=== PATIENT | male | born 1945 | race Caucasian/White ===

== ENCOUNTER 2016-05-30 05:30 | Day surgery (SDC) ==
[2016-05-29 09:33] LABS: HEMATOCRIT 35.6 % (42.0-52.0); HEMOGLOBIN 10.7 g/dL (14.0-18.0); MCH 22.3 PG (27-31); MCHC 30.1 g/dL (33-37); MCV 74.2 FL (81-99); MPV 10.1 FL (7.4-10.4); RBC 4.8 XMIL (4.7-6.1)
[2016-05-29 09:37] LABS: INR 1.02; PROTIME 10.8 Seconds (9.2-11.7); PTT 26.8 Seconds (22.0-36.0)
[2016-05-29 09:49] LABS: CALCIUM 9.3 mg/dL (8.8-10.2); POTASSIUM 4.3 mmol/L (3.5-5.1)
[2016-05-30] MEDS ORDERED: KEFZOL 2 GM/D5W 50 ML ONE (06:10)
[2016-05-30] MEDS ORDERED: REGLAN ONE (06:10)
[2016-05-30] MEDS ORDERED: LR 1,000 ML ONE ×2 (06:10→12:07)
[2016-05-30] MEDS ORDERED: PEPCID ONE (06:10)
[2016-05-30] MEDS ORDERED: DIPRIVAN 1% ONE (09:16)
[2016-05-30] MEDS ORDERED: PERCOCET-5 ONE (10:25)
[2016-05-30] MEDS ORDERED: PYRIDIUM ONE ×2 (10:25→10:29)
--- NOTE | 2016-05-30 10:46 | Diag Imaging Result Document ---
PROCEDURE NAME: RETROGRADES 2 OR 3 FILMS - 05/30/2016 LEFT-SIDED URETEROGRAM: COMPARISON: 04/17/2015. FINDINGS: The exam was performed by the patient's urologist. Thirty-one images were obtained. There was placement of a wire and stent in the left renal collecting system. Contrast injection demonstrates hydronephrosis with clubbing of the calyces. A left nephroureteral stent was placed in normal position. IMPRESSION: Left hydronephrosis. Left stent placement.
[2016-05-30 11:05] VITALS: BP 139/76
[2016-05-30] MEDS ORDERED: XYLOCAINE-MPF 2% ONE (12:07)
[2016-05-30] MEDS ORDERED: ATROPINE ONE (12:07)
[2016-05-30] MEDS ORDERED: EPHEDRINE ONE (12:07)
[2016-05-30] MEDS ORDERED: ZOFRAN ONE (12:07)
[2016-05-30] MEDS ORDERED: DECADRON ONE (12:07)
--- NOTE | 2016-05-30 14:25 | OPERATIVE NOTE ---
PROCEDURE DATE: 05/30/2016 SURGEON: Dr. Celio Feldman. PREOPERATIVE DIAGNOSIS: Left ureteral stone, hydronephrosis, flank pain, chronic anticoagulation. PRIMARY PROCEDURES: Cystoscopy, left ureteroscopy, retrograde pyelogram, laser lithotripsy, stone basket extraction, placement of 6-Mauritian-24 cm ureteral stent. INDICATIONS: A 70-year-old male with recurrent urolithiasis who presented with significant left flank pain. He underwent imaging which revealed 6 mm left proximal ureteral stone with mild hydronephrosis. He was counseled on medical expulsive therapy versus intervention. Chose to proceed with the latter. He was counseled on the risks. FINDINGS: The stone was advanced into the kidney with a safety wire. Rigid ureteroscopy was converted to a flexible ureteroscopy which allowed us to visualize the stone. Successful fragment extraction after laser lithotripsy, adequate stent placement. PROCEDURE IN DETAIL: After obtaining informed consent, patient brought to the operative room. Perioperative antibiotics and laryngeal mask anesthesia were administered. He was placed in lithotomy position, prepped and draped in sterile fashion. His upper and lower extremities were appropriately padded. A 21-Mauritian rigid cystoscope was used to gain access to the bladder, which was then examined in systematic fashion. He did have prostatic bilobar hypertrophy. I was able to see the left ureteral orifice which was cannulated with a PTFE wire that was then advanced to the left renal pelvis. Following that, a rigid ureteroscope was introduced alongside of the wire and advanced all the way to the level of the ureteropelvic junction. There was hydroureteronephrosis from the level of the mid ureter but no stone was seen. On fluoroscopy I could see a faint 6 mm calcification of the lower pole which likely corresponded to the stone. We then removed the rigid ureteroscope and introduced a 2nd PTFE wire. We then backloaded flexible cystoscope onto the wire and advanced it under fluoroscopic guidance to the level of the ureteropelvic junction. Under direct vision then the ureteroscope was introduced. Fifty percent diluted Omnipaque dye was used to perform retrograde pyelogram in order to identify the caliceal anatomy. Following that, we examined each calyx carefully. The stone was seen in the lower pole calyx where I presumably pushed it up with a wire. He also had a smaller 2 mm stone at the calyx adjacent to it. I used 273 micron Holmium laser fiber, with energy settings of 0.8 joules and 8 peralta to break the stone up into small fragments. The 2 mm stone was broken up to its small minute particles. The 0 Nitinol basket was then used to retrieve the stone fragments. Following that we repeated a ureteroscopy without evidence of residual fragments or ureteral or renal injury. We then elected to place ureteral stent given the significant mucosal edema. In a standard fashion a 6-Mauritian 24 cm ureteral stent was advanced over the wire via the cystoscope with the proximal coil position confirmed fluoroscopically and distal coil directly visualized. The string was left attached to the stent. The bladder was emptied, cystoscope was removed, he was extubated and taken to the PACU for further recovery. ESTIMATED BLOOD LOSS: None. COMPLICATIONS: None. DISPOSITION: To PACU and subsequently home with prescription for Percocet 10 (20), Cipro 500 (14). He was instructed to remove the stent by pulling the string in 4 days. We did not send the stent off for analysis as he has had it analyzed before.
== END 2016-05-30 11:00 | disposition home or self-care (01) ==
LOC: OPS 05:30
PROVIDERS: ATTEND Urology
DX: N13.2 Hydronephrosis with renal and ureteral calculous obstruction (principal); K21.9 Gastro-esophageal reflux disease without esophagitis; E11.9 Type 2 diabetes mellitus without complications; F32.9 Major depressive disorder, single episode, unspecified; I25.2 Old myocardial infarction; E78.00 Pure hypercholesterolemia, unspecified; I10 Essential (primary) hypertension; E03.9 Hypothyroidism, unspecified; Z95.5 Presence of coronary angioplasty implant and graft; Z79.01 Long term (current) use of anticoagulants; Z79.4 Long term (current) use of insulin; Z87.891 Personal history of nicotine dependence
CPT/HCPCS: 74420; 80048; 82948; 85027; 85610; 85730; C2617; J0461; J0690; J1100; J2405; J7120; Q9966

== ENCOUNTER 2016-08-12 14:01 | Emergency (ER) ==
--- NOTE | 2016-08-12 15:06 | PROVIDER DOCUMENTATION ---
HPI-Respiratory General - General Chief Complaint: Shortness of Breath Stated Complaint: sob Time Seen by Provider: 08/12/16 14:25 Source: patient Allergies/Adverse Reactions: Patient Allergies Allergy/AdvReac Type Severity Reaction Status Date / Time No Known Allergies Allergy Verified 05/29/16 08:58 Home Medications: Home Medication List Medication Instructions Recorded Confirmed Last Taken Type ATORVAstatin [Lipitor] 40 mg PO QPM 04/15/14 05/30/16 05/29/16 20:00 History Carvedilol [Coreg] 12.5 mg PO BID 04/12/15 05/30/16 05/30/16 04:30 History Omeprazole [Prilosec] 40 mg PO DAILY@0700 #0 capsule 04/18/15 05/30/16 05/29/16 07:00 Rx Spironolactone [Aldactone] 12.5 mg PO DAILY #0 tablet 04/18/15 05/30/16 04:30 Rx Amiodarone [Cordarone] 400 mg PO DAILY 05/29/16 05/30/16 05/30/16 04:30 History Apixaban [Eliquis] 2.5 mg PO BID 05/29/16 05/30/16 05/28/16 08:00 History Aspirin 81 mg PO DAILY 05/29/16 05/30/16 05/30/16 04:30 History Furosemide 40 mg PO DAILY 05/29/16 05/30/16 05/30/16 04:30 History Hydralazine [Apresoline] 50 mg PO BID 05/29/16 05/30/16 05/30/16 04:30 History Insulin Aspart [Novolog] 10 unit SQ QHS 05/29/16 05/30/16 05/29/16 20:00 History Insulin Aspart [Novolog] 40 unit SQ QAM 05/29/16 05/30/16 05/29/16 07:00 History Insulin Detemir [Levemir] 60 unit SUBQ BID 05/29/16 05/30/16 05/29/16 20:00 History Ciprofloxacin HCl [Cipro] 500 mg PO BID #14 tablet 05/30/16 Unknown Rx Oxycodone HCl/Acetaminophen 1 each PO Q6H PRN PRN #20 tablet 05/30/16 Unknown Rx [Percocet 10-325 mg Tablet] - History of Present Illness-Resp Nature of Presenting Problem: patient is a 70 y/o M that presents to the ER with shortness of breath, cough, and edema x 1 month. patient denies fever, n/v/d, or chest pain. was placed on medication Quality of Pain: reports: tightness Severity in ED: reports: moderate Onset/Duration: reports: gradual, other (one month) Timing: reports: still present, constant Context: denies: out of meds, aspiration/choking Cough Quality/Degree: reports: mild, dry cough Current Respiratory Medication Therapy: Initiated see nurses note Modifying Factors: worse with: coughing Associated Symptoms: reports: cough, shortness of breath, short of breath. denies: facial pain, fever/chills, flu-like symptoms, nasal congestion, nasal drainage, sore throat, wheezing Similar Symptoms Previously?: Yes Recently seen or treated by another doctor?: Yes Review of Systems - Adult - REVIEW OF SYSTEMS - ADULT Constitutional: denies: chills, fever Eyes: reports: no symptoms reported Ears, Nose, Mouth & Throat: reports: no symptoms reported Cardiovascular: reports: edema. denies: chest pain, palpitations, syncope Respiratory: reports: cough, shortness of breath Gastrointestinal: denies: abdominal pain, diarrhea, nausea, vomiting Genitourinary: reports: no symptoms reported Musculoskeletal: reports: no symptoms reported Integumentary: reports: no symptoms reported Neurological: reports: no symptoms reported Psychiatric: reports: no symptoms reported Endocrine: reports: no symptoms reported Hematologic/Lymphatic: reports: no symptoms reported Allergic/Immunologic: reports: no symptoms reported All Other Systems: Reviewed and Negative Past History - Adult - PAST MEDICAL HISTORY-ADULT Review of Records: reports: Old Records Reviewed, Nursing Assessment Review, Medications Reviewed Cardiovascular: reports: HTN, NM Genitourinary: reports: kidney stones (had surgey last fri) - PRIOR SURGERIES/PROCEDURES Surgical/Procedure History: reports: CABG, other (cystoscopy. nephrolithotomy) - IMMUNIZATION STATUS Childhood Immunizations: See Nurse Assessment Flu Vaccine: See Nurse Assessment - FAMILY HISTORY Family History: reviewed, not pertinent - SOCIAL HISTORY Smoking: quit greater than 1 year, cigarettes Alcohol Use Frequency: occasionally Living Situation: family Physical Exam-General - PHYSICAL EXAM-ADULT Initial Vital Signs Reviewed: Yes - CONSTITUTIONAL General Appearance: alert, no apparent distress - EYES Eyes: PERRL/EOMI, pink conjunctivae - HEAD, EARS, NOSE, MOUTH & THROAT HENMT: normocephalic/atraumatic, moist mucous membranes, normal ENT inspection - NECK Neck: full range of motion, normal inspection - RESPIRATORY Respiratory: lungs clear, normal breath sounds, no respiratory distress, no accessory muscle use - CARDIOVASCULAR Cardiovascular: regular rate, rhythm, no edema, no murmur - GASTROINTESTINAL (ABDOMEN) Abdominal Exam: normal bowel sounds, non tender, soft - MUSCULOSKELETAL Extremity: no calf tenderness, normal capillary refill, pedal edema (1 plus) - SKIN Integumentary: normal color, warm/dry - NEUROLOGIC Neurologic: grossly normal, no motor/sensory deficits - PSYCHIATRIC Psych/Mental Status: normal mood/affect, normal thought content, normal thought process, oriented x 3 Progress - PLAN OF CARE/RESULTS Progress/Plan/Lab Results: Vital Signs Temp Pulse Resp BP Pulse Ox 08/12/16 14:18 97.7 F 60 20 119/60 97 No Known Allergies Allergy (Verified 05/29/16 08:58) ATORVAstatin [Lipitor] 40 mg PO QPM 04/15/14 Carvedilol [Coreg] 12.5 mg PO BID 04/12/15 Omeprazole [Prilosec] 40 mg PO DAILY@0700 #0 capsule 04/18/15 Spironolactone [Aldactone] 12.5 mg PO DAILY #0 tablet 04/18/15 Amiodarone [Cordarone] 400 mg PO DAILY 05/29/16 Apixaban [Eliquis] 2.5 mg PO BID 05/29/16 Aspirin 81 mg PO DAILY 05/29/16 Furosemide 40 mg PO DAILY 05/29/16 Hydralazine [Apresoline] 50 mg PO BID 05/29/16 Insulin Aspart [Novolog] 10 unit SQ QHS 05/29/16 Insulin Aspart [Novolog] 40 unit SQ QAM 05/29/16 Insulin Detemir [Levemir] 60 unit SUBQ BID 05/29/16 Ciprofloxacin HCl [Cipro] 500 mg PO BID #14 tablet 05/30/16 Oxycodone HCl/Acetaminophen [Percocet 10-325 mg Tablet] 1 each PO Q6H PRN PRN # 20 tablet 05/30/16 Laboratory 08/12/16 08/12/16 08/12/16 14:29 14:29 14:29 WBC RBC Hgb Hct MCV MCH MCHC RDW Std Deviation Plt Count MPV Immature Gran % (Auto) Neut % (Auto) Lymph % (Auto) [place] % (Auto) Eos % (Auto) Baso % (Auto) Immature Gran # (Auto) Neut # (Auto) Lymph # (Auto) [place] # (Auto) Eos # (Auto) Baso # (Auto) PT 11.2 INR 1.09 PTT (Actin FS) 29.5 D-Dimer Sodium Potassium Chloride Carbon Dioxide Anion Gap BUN Creatinine Estimated GFR/1.73 m2 BUN/Creatinine Ratio Glucose Calculated Osmolality Calcium Magnesium Total Bilirubin AST ALT Alkaline Phosphatase Creatine Kinase Troponin T 0.054 Jvy-N-Taqxxsusibl Pept 409 H Total Protein Albumin Globulin Albumin/Globulin Ratio 08/12/16 08/12/16 08/12/16 14:29 14:29 14:29 WBC 8.30 RBC 4.70 Hgb 10.6 L Hct 35.0 L MCV 74.5 L MCH 22.6 L MCHC 30.3 L RDW Std Deviation 19.1 H Plt Count 290 MPV 11.0 H Immature Gran % (Auto) 0.0 Neut % (Auto) 66.0 Lymph % (Auto) 19.8 L [place] % (Auto) 10.4 H Eos % (Auto) 3.6 Baso % (Auto) 0.2 Immature Gran # (Auto) 0.00 Neut # (Auto) 5.48 Lymph # (Auto) 1.64 [place] # (Auto) 0.86 H Eos # (Auto) 0.30 Baso # (Auto) 0.02 PT INR PTT (Actin FS) D-Dimer 0.54 H Sodium 139 Potassium 4.4 Chloride 101 Carbon Dioxide 22 L Anion Gap 16 BUN 26 H Creatinine 1.7 H Estimated GFR/1.73 m2 40 BUN/Creatinine Ratio 15 Glucose 72 Calculated Osmolality 281 Calcium 9.3 Magnesium 1.8 Total Bilirubin 0.34 AST 21 ALT 22 Alkaline Phosphatase 60 Creatine Kinase 116 Troponin T Vof-N-Zipyzevdqax Pept Total Protein 7.1 Albumin 3.8 Globulin 3.3 Albumin/Globulin Ratio 1.2 Orders Category Date Time Status Cardiac Monitoring DIRECTED Care 08/12/16 14:23 Active Saline Loc NOW Care 08/12/16 14:23 Active CHEST-2 VIEWS [RAD] Stat Exams 03/20/17 14:23 Completed CBC WITH ELECTRONIC DIFF [HEME] Stat Lab 08/12/16 14:29 Completed CK PROFILE [SP CHEM] Stat Lab 08/12/16 14:29 Completed COMPREHENSIVE METABOLIC PANEL [CHEM] Stat Lab 08/12/16 14:29 Completed D-DIMER [CHEM] Stat Lab 08/12/16 14:29 Completed MAGNESIUM [CHEM] Stat Lab 08/12/16 14:29 Completed PRO B-NATRIURETIC PEPTIDE Stat Lab 08/12/16 14:29 Completed PROTIME WITH INR [COAG] Stat Lab 08/12/16 14:29 Completed PTT [COAG] Stat Lab 08/12/16 14:29 Completed TROPONIN T Stat Lab 08/12/16 14:29 Completed EKG [EKG] Stat Ther 08/12/16 14:23 Ordered - EKG 1 Time of EKG reading by physician:: 14:16 EKG Read and Signed by:: Campbell Bo EKG Interpretation (*Must complete 3 of following elements*): Abnormal Rate: 58 Rhythm: sinus bradycardia QRS: normal ST Wave: non-specific ST changes - XRAY 1 XRAY Study: Chest Impression: Normal XRAY Interpretation: nad - CONSULTS/PCP/HOSPITALIST Notification #1 *Consult/PCP/Hospitalist*: ( election clerk for ) Time Discussed: 17:06 Reason/Comments: admit obsv, VQ scan in the am Consult Disposition: Admit Departure - Departure Time of Disposition Order: 17:06 DIAGNOSIS: Elevated d-dimer, Renal insufficiency Dyspnea Qualifiers: Dyspnea type: shortness of breath Qualified Code(s): R06.02 - Shortness of breath Disposition: ADMITTED INPATIENT 09 Certified Medical Emergency: Emergent Condition: Stable Attestation - Scribe Verification/Attestation Scribe:: Clyde Pittman Acting as Scribe for:: Campbell Bo Scribchanda documention review:: This chart was documented by a scribe and accurately reflects the service the provider performed and the decisions made by the provider. Physician Attestation - Physician Attestation I, the provider, attest to the following statement:: Campbell Bo Physician documentation Attestation:: This documentation recorded by the scribe accurately reflects the service I personally performed and the decisions made by me.
[2016-08-12 15:21] LABS: INR 1.09; PROTIME 11.2 Seconds (9.2-11.7); PTT 29.5 Seconds (22.0-36.0)
--- NOTE | 2016-08-12 15:24 | Diag Imaging Result Document ---
PROCEDURE NAME: CHEST-2 VIEWS - 08/12/2016 CHEST, 2 VIEWS: FINDINGS: There are sternotomy wires. There is no evidence of acute cardiac or pulmonary disease and compared to 04/18/2015, there has been no significant change. IMPRESSION: No acute disease.
[2016-08-12 15:29] LABS: BASO% 0.2 % (0.0-0.8); EOS% 3.6 % (0.0-10.0); HEMOGLOBIN 10.6 g/dL (14.0-18.0); LYMPH# 1.64 X1000 (1.2-3.4); LYMPH% 19.8 % (20.5-51.1); MANUAL DIFF NEEDED? NO; MCH 22.6 PG (27-31); MCHC 30.3 g/dL (33-37); MCV 74.5 FL (81-99); MONO# 0.86 X1000 (0.11-0.59); MONO% 10.4 % (1.7-9.3); PLT 290 X1000 (130-400)
[2016-08-12 15:39] LABS: ALBUMIN 3.8 g/dL (3.5-5.0); CALCIUM 9.3 mg/dL (8.8-10.2); MAGNESIUM 1.8 mg/dL (1.5-2.7); POTASSIUM 4.4 mmol/L (3.5-5.1); TOTAL BILIRUBIN 0.34 mg/dL (0.20-1.00); TOTAL PROTEIN 7.1 g/dL (6.3-8.3)
[2016-08-12 18:14] VITALS: BP 140/85
--- NOTE | 2016-08-13 05:22 | EKG Report ---
Test Performed on : 08/12/2016 2:16:27 PM Test Reason : Chest Pain Blood Pressure : / mmHG Vent. Rate : 058 BPM Atrial Rate : 058 BPM P-R Int : 206 ms QRS Dur : 086 ms QT Int : 454 ms P-R-T Axes : 053 008 092 degrees QTc Int : 445 ms Sinus bradycardia. 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
== END 2016-08-12 18:14 | disposition home or self-care (01) ==
LOC: ED 14:01
DX: R06.00 Dyspnea, unspecified (principal); N28.9 Disorder of kidney and ureter, unspecified; R79.1 Abnormal coagulation profile; R05 Cough; R06.02 Shortness of breath; R60.0 Localized edema; I10 Essential (primary) hypertension; I25.2 Old myocardial infarction; Z79.01 Long term (current) use of anticoagulants; Z79.82 Long term (current) use of aspirin; Z79.4 Long term (current) use of insulin; Z79.899 Other long term (current) drug therapy; Z87.442 Personal history of urinary calculi; Z95.1 Presence of aortocoronary bypass graft; Z87.891 Personal history of nicotine dependence
CPT/HCPCS: 71020; 80053; 82550; 83735; 83880; 84484; 85025; 85379; 85610; 85730; 93005

== ENCOUNTER 2018-08-25 13:00 | Inpatient (IN) ==
[2018-08-25] MEDS ORDERED: BENTYL IM ONE (13:51)
--- NOTE | 2018-08-25 14:29 | Diag Imaging Result Doc PS360 ---
CT ABDOMEN/PELVIS W/O CONTRAST - 08/25/2018 INDICATION: diarrhea, pain COMPARISON: 01/05/2018 FINDINGS: The lung bases are clear. Heart size is top normal. Stable sternotomy changes. There is an ill-defined hypoechoic nodule in the superior liver dome. This measures about 3.1 cm maximally. There is abnormal contour of the liver adjacent to this. In the inferior right lobe adjacent to the gallbladder fossa there is a smaller masslike area there is stable. This is irregular. This measures about 2.8 cm. There are several small calcified gallstones in the gallbladder. The liver is much less fatty than before. There is a small nonobstructing right renal stone measuring about 3 mm. There is severe diverticulosis of the distal colon. No bowel obstruction or inflammation. Stable laminectomy and fusion changes of the lower lumbar spine. There is severe degenerative osteophyte formation all throughout the entire spine. No obvious fracture. IMPRESSION: 1. Indeterminate mass in the liver dome. The overlying deformity of the capsule suggests this is chronic. Malignancy cannot be excluded. Clinical correlation recommended. There is a second stable appearing smaller mass in the inferior liver adjacent to the gallbladder fossa. 2. Nonobstructing right renal stone. 3. Small gallstones. 4. Severe diverticulosis coli. This exam was performed using automated exposure control, adjustment of mA or kV according to patient size, and/or use of iterative reconstruction technique Electronically signed by Zach Shine 08/25/2018 2:27 PM
[2018-08-25 14:37] LABS: BASO# 0.02 X1000 (0.0-0.2); BASO% 0.2 % (0.0-0.8); EOS# 0.35 X1000 (0.0-0.7); EOS% 3.2 % (0.0-10.0); HEMATOCRIT 42.1 % (42.0-52.0); HEMOGLOBIN 13.5 g/dL (14.0-18.0); LYMPH# 1.13 X1000 (1.2-3.4); LYMPH% 10.3 % (20.5-51.1); MCH 28.1 PG (27-31); MCHC 32.1 g/dL (33-37); MCV 87.5 FL (81-99); MONO# 1.03 X1000 (0.11-0.59); MONO% 9.4 % (1.7-9.3); NEUT# 8.48 X1000 (1.4-6.5); NEUT% 76.9 % (42.2-75.2); PLT 190 X1000 (130-400); RBC 4.81 XMIL (4.7-6.1); RDW 16.4 % (11.5-14.5); WBC 11.01 X1000 (4.8-10.8)
[2018-08-25 15:11] LABS: ALB/GLOB RATIO 1.2; ALBUMIN 3.6 g/dL (3.5-5.0); CALCIUM 8.7 mg/dL (8.8-10.2); CREATININE 3.6 mg/dL (0.7-1.2); POTASSIUM 4.6 mmol/L (3.5-5.1); TOTAL BILIRUBIN 0.58 mg/dL (0.20-1.00); TOTAL PROTEIN 6.7 g/dL (6.3-8.3)
[2018-08-25] MEDS ORDERED: NS 1,000 ML IV ONE ×2 (16:39→16:57)
--- NOTE | 2018-08-25 17:02 | PROVIDER DOCUMENTATION ---
This chart was entered by Trini Foster Scribe, acting as scribe for Luisito Madrid MD. HPI-General Adult - General Chief Complaint: Diarrhea Stated Complaint: Weakness, Diahrrea Time Seen by Provider: 08/25/18 13:45 Source: patient Allergies/Adverse Reactions: Patient Allergies Allergy/AdvReac Type Severity Reaction Status Date / Time amiodarone AdvReac Intermediate Unknown Verified 06/14/18 04:53 Home Medications: Home Medication List Medication Instructions Recorded Confirmed Last Taken Type Carvedilol [Coreg] 12.5 mg PO BID 04/12/15 08/25/18 06/12/18 08:00 History Aspirin 81 mg PO DAILY 05/29/16 08/25/18 06/12/18 08:00 History Atorvastatin Calcium [Lipitor] 40 mg PO QHS 02/17/17 08/25/18 06/12/18 21:00 History Isosorbide Mononitrate [Isosorbide 30 mg PO HS 02/17/17 08/25/18 06/12/18 21:00 History Mononitrate ER] Torsemide [Demadex] 20 mg PO DAILY 07/31/17 08/25/18 06/12/18 08:00 History Losartan [Cozaar] 25 mg PO DAILY 09/21/17 08/25/18 06/12/18 08:00 History Allopurinol [Zyloprim] 100 mg PO DAILY 04/15/18 08/25/18 06/12/18 08:00 History Apixaban [Eliquis] 5 mg PO BID 04/15/18 08/25/18 06/12/18 08:00 History Insulin Detemir [Levemir Flextouch] 80 unit SQ BID 04/15/18 08/25/18 04/15/18 18:00 History Acetaminophen [Tylenol] 650 mg PO Q6H PRN PRN tablet 04/23/18 08/25/18 Unknown Rx Magnesium Oxide 400 mg PO DAILY #0 04/23/18 08/25/18 06/12/18 08:00 Rx Tamsulosin [Flomax] 0.4 mg PO DAILY capsule 04/23/18 08/25/18 06/14/18 08:00 Rx Citalopram [Celexa] 20 mg PO DAILY 01/08/25/18 06/12/18 08:00 History Gabapentin 300 mg PO BID 06/14/18 08/25/18 06/14/18 08:00 History Hydralazine [Apresoline] 50 mg PO BID 06/14/18 08/25/18 06/12/18 08:00 History Insulin Aspart [Novolog Flexpen] 60 units SQ BID 06/14/18 08/25/18 Unknown History Famotidine 20 mg PO DAILY 06/15/18 08/25/18 Unknown History Insulin Lispro [Humalog] 100 unit SQ DIRECTED 06/23/18 08/25/18 Unknown History - History of Present Illness -Gen Adult Nature of Presenting Problems: Patient is a 72 year old male who presents to the ED via EMS with diarrhea for 3 days. States 5 to 10 episodes of diarrhea a day. Denies pain, nausea, vomiting, fever and chills. Denies recently taking an antibiotic. Location of Pain/Injury: reports: none Pain Radiation: reports: no radiation Quality of Pain: reports: none Severity: reports: mild Onset/Duration: reports: 3 days ago Timing: reports: still present Context/Activities at Onset: reports: light activity Modifying Factors: improves with: nothing Associated Symptoms: reports: diarrhea Similar Symptoms Previously?: Yes Recently seen or treated by another doctor?: No Review of Systems - Adult - REVIEW OF SYSTEMS - ADULT Constitutional: reports: no symptoms reported. denies: chills, fever, fatique Eyes: reports: no symptoms reported Ears, Nose, Mouth & Throat: reports: no symptoms reported Cardiovascular: reports: no symptoms reported Respiratory: reports: no symptoms reported Gastrointestinal: reports: see HPI, diarrhea. denies: abdominal pain, nausea, vomiting Genitourinary: reports: no symptoms reported Musculoskeletal: reports: no symptoms reported. denies: back pain, muscle aches, neck pain Integumentary: reports: no symptoms reported Neurological: reports: no symptoms reported Psychiatric: reports: no symptoms reported Endocrine: reports: no symptoms reported Hematologic/Lymphatic: reports: no symptoms reported Allergic/Immunologic: reports: no symptoms reported All Other Systems: Reviewed and Negative Past History - Adult - PAST MEDICAL HISTORY-ADULT Review of Records: reports: Nursing Assessment Review, Medications Reviewed, Social history reviewed & non-contributory. Major Childhood Illnesses: reports: denies history Cardiovascular: reports: A-Fib, CHF, HTN, hyperlipidemia, NM Respiratory: reports: sleep apnea Gastrointestinal: reports: GERD Obstetrical/Gynecological: reports: denies history Genitourinary: reports: kidney disease, kidney stones (had surgey last fri) Musculoskeletal: reports: denies history Neurological: reports: denies history Psychiatric: reports: ptsd Endocrine/Immune: reports: Diabetes Other Conditions: reports: denies history - PRIOR SURGERIES/PROCEDURES Surgical/Procedure History: reports: CABG, back/neck (back), other (cystoscopy. nephrolithotomy) - IMMUNIZATION STATUS Childhood Immunizations: See Nurse Assessment Flu Vaccine: See Nurse Assessment - FAMILY HISTORY Family History: reviewed, not pertinent - SOCIAL HISTORY Smoking: cigarettes (former) Substance Use: denies Physical Exam-General - PHYSICAL EXAM-ADULT Initial Vital Signs Reviewed: Yes - CONSTITUTIONAL General Appearance: alert, no apparent distress, obese. negative: lethargic, slow to respond - HEAD, EARS, NOSE, MOUTH & THROAT HENMT: moist mucous membranes. negative: angioedema, hearing deficit - RESPIRATORY Respiratory: chest non-tender, lungs clear, normal breath sounds. negative: crackles, rhonchi - CARDIOVASCULAR Cardiovascular: normal peripheral pulses, regular rate, rhythm. negative: tachycardia, systolic murmur - GASTROINTESTINAL (ABDOMEN) Abdominal Exam: normal bowel sounds, non tender, soft. negative: guarding, re bound - MUSCULOSKELETAL Extremity: non-tender, normal inspection. negative: deformity, swelling - SKIN Integumentary: normal color, normal turgor, warm/dry. negative: cyanosis, erythema, jaundice - NEUROLOGIC Neurologic: grossly normal - PSYCHIATRIC Psych/Mental Status: normal mood/affect, oriented x 3. negative: paranoid, tearful Progress - PLAN OF CARE/RESULTS Progress/Plan/Lab Results: Vital Signs - 8 hr 08/25/18 13:40 Pulse Rate 84 Respiratory Rate 21 Blood Pressure 107/61 O2 Sat by Pulse Oximetry 96 Orders Category Date Time Status CT ABDOMEN/PELVIS W/O CONTRAST [CT] Stat Exams 08/25/18 13:52 Ordered C DIFF TOXIN [STOOL] Stat Lab 08/25/18 13:50 Uncollected CBC WITH ELECTRONIC DIFF [HEME] Stat Lab 08/25/18 13:47 Uncollected COMPREHENSIVE METABOLIC PANEL [CHEM] Stat Lab 08/25/18 13:47 Uncollected UA [URINALYSIS] [URINALYSIS] Stat Lab 08/25/18 13:47 Uncollected Dicyclomine [Bentyl] Med 08/25/18 13:51 Discontinued 10 mg IM NOW ONE Result Diagrams: 08/25/18 14:28 08/25/18 14:28 - CT/MRI 1 CT Study: Abdomen, Pelvis Impression: See EMR Report ( CT ABDOMEN/PELVIS W/O CONTRAST - 08/25/2018 INDICATION: diarrhea, pain COMPARISON: 01/05/2018 FINDINGS: The lung bases are clear. Heart size is top normal. Stable sternotomy changes. There is an ill- defined hypoechoic nodule in the superior liver dome. This measures about 3.1 cm maximally. There is abnormal contour of the liver adjacent to this. In the inferior right lobe adjacent to the gallbladder fossa there is a smaller masslike area there is stable. This is irregular. This measures about 2.8 cm. There are several small calcified gallstones in the gallbladder. The liver is much less fatty than before. There is a small nonobstructing right renal stone measuring about 3 mm. There is severe diverticulosis of the distal colon. No bowel obstruction or inflammation. Stable laminectomy and fusion changes of the lower lumbar spine. There is severe degenerative osteophyte formation all throughout the entire spine. No obvious fracture. IMPRESSION: 1. Indeterminate mass in the liver dome. The overlying deformity of the capsule suggests this is chronic. Malignancy cannot be excluded. Clinical correlation recommended. There is a second stable appearing smaller mass in the inferior liver adjacent to the gallbladder fossa. 2. Nonobstructing right renal stone. 3. Small gallstones. 4. Severe diverticulosis coli. This exam was performed using automated exposure control, adjustment of mA or kV according to patient size, and/or use of iterative reconstruction technique Electronically signed by Zach Shine 08/25/2018 2:27 PM 08/25/18 7609 Interpreting Physician: Zach Shine MD Dictated Date/Time: 08/25/18 1423 cc: Luisito Madrid MD; Mariano Bowman MD) - CONSULTS/PCP/HOSPITALIST Notification #1 *Consult/PCP/Hospitalist*: Dr. Louis Time Discussed: 16:36 Reason/Comments: Dr. Madrid consulted with Dr. Louis about patient. Consult Disposition: F/U in office #2 Consult: ANA Coffman for Hospitalist Time Discussed: 16:50 Reason/Comments: Dr. Madrid consulted with Meghna about patient. Consult Disposition: other (patient is a Dr. Bowman patient.) #3 Consult: Dr. Woo Time Discussed: 16:54 Reason/Comments: Dr. Madrid consulted with Dr. Woo about patient. Consult Disposition: Admit Departure - Departure Date of Disposition Decision: 08/25/18 Time of Disposition Decision: 16:50 DIAGNOSIS: Diarrhea, Liver mass, Chronic renal insufficiency, stage IV (severe), Dehyd ration Disposition: ADMITTED INPATIENT 09 Certified Medical Emergency: Emergent Condition: Stable Referrals and Follow-Ups: Mariano Bowman MD [Primary Care Provider] - - Critical Care Note This patient required my direct & personal management of CC.: No Attestation - Physician/ LAMONT Attestation Patient care was provided by Advanced Practice Provider:: No The physician spent face to face time with patient:: Yes Advanced Practice Provider documentation review:: Supervising physician onsite and consulted in the evaluation and care of this patient. The physician did have a face to face encounter with the patient. This chart was documented by the indicated scribe, (Trini Foster, Jeffry) and accurately reflects the services I performed and decisions made by me, Luisito Madrid MD, as attested by the provider's signature.
[2018-08-25] MEDS ORDERED: POTASSIUM CHLORIDE 10 MEQ in 1/2 NS 1,000 ML IV SCH (19:00)
[2018-08-25] MEDS ORDERED: FLAGYL 500 MG/NS 500 MG/100 ML IVPB IV SCH (19:00)
--- NOTE | 2018-08-25 19:23 | HISTORY AND PHYSICAL ---
ADDENDUM: He had a CT scan done in the emergency room, which revealed an indeterminate mass in the liver dome. Malignancy could not be ruled out. He has a nonobstructing renal stone, cholelithiasis, and severe diverticulosis of the colon. We will get a GI consult with Dr. Louis. cc: Ramon Woo MD
--- NOTE | 2018-08-25 20:08 | HISTORY AND PHYSICAL ---
Mr. Mills who is a 72-year-old white gentleman, a patient of Dr. Bowman has been having diarrhea for about 2 days. He says he has almost lost control on his bowels. Six months ago he had a laser back surgery probably diskectomy by Dr. Crook. Prior to the back surgery he had some radicular pains in both legs with weakness however he did not have a sphincter disturbance at that time. He had full control on his bowels, he has problems with BPH and has been on tamsulosin and has history of multiple gallbladder stones in the past and multiple kidney stones. He is under care of Dr. Christianson actively. He was found to have dehydration and increasing renal failure hence he is admitted. The diarrhea is constant. He has not been taking any antibiotics lately. He was found to have increase in BUN, creatinine, it went up to 57 and 3.6 respectively from normal BUN and went from about 25 BUN and 1.2 creatinine about 3 months ago. Three months ago he was admitted for a kidney stone here at the hospital and had urinary tract infection at that time. HOME MEDICATIONS: Include torsemide 20 mg daily, tamsulosin 0.4 mg daily, magnesium oxide 400 mg daily, losartan 25 mg daily, isosorbide mononitrate 30 mg at bedtime, his is on lispro insulin 100 units and he is on Levemir 80 units b.i.d., he is on insulin aspartate 60 units b.i.d., this is what he is taking at home, hydralazine 50 mg b.i.d., gabapentin 300 mg b.i.d., famotidine, Pepcid 20 mg daily, citalopram 20 mg daily, carvedilol 12.5 mg b.i.d., aspirin 80 mg daily, apixaban 5 mg b.i.d., allopurinol 100 mg daily and Tylenol. In 2012 he had 4 vessel bypass surgery performed in [place]. He has a known case of insulin- dependent diabetes as well as hypertension and chronic severe back pain from degenerative disk disease. He is home bound and he lives with his . REVIEW OF SYSTEMS: Other than what has been mentioned is noncontributory. PHYSICAL EXAMINATION: Mr. Mills is alert, oriented. VITAL SIGNS: Temperature normal, pulse 92 per minute, blood pressure 99/67, respiratory rate 13 per minute, oxygen saturation was 97%. Head normocephalic. Pupils PERRLA. Fundus examination not done. Neck supple, JVP normal. ENT examination unremarkable. There is no evidence of lymphadenopathy, thyroid enlargement. There is minimal pedal edema noted. No calf tenderness. Pedal pulses are feeble. He has poor feet hygiene with some healed ulcerations on the big toes and he says he does not have much sensation in his feet. The breast exam normal. CHEST: Reveals midline scar from bypass surgery. LUNGS: Clear on auscultation. PMI in the normal position. HEART: Sounds normal. No murmur, gallop or rub noted. ABDOMEN: Nondistended. Hernial orifices normal. No guarding, rigidity, free fluid, masses, organomegaly. Abdomen is obese. Bowel sounds normal. RECTAL: Deferred at the present time. 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 Cranial nerves normal. Motor and sensory system examination unremarkable except for some evidence of decreased pain and sensation in the sole of both feet. Deep tendon reflexes are sluggish. Plantars downgoing. Skull and spine examination normal. SKIN: Unremarkable. He has a small decubitus sore on the sacrococcygeal area. IMPRESSION: 1. Diarrhea of new onset. 2. Increasing renal failure. PLAN: Start IV fluids, put him on Flagyl at the present time. I do not want to put him on the antibiotics on account of the fact that we had done the C difficile test. The results are not back yet. Will treat his dehydration with half-normal saline. Continue his diabetic medications. cc: Ramon Woo MD
[2018-08-25] MEDS ORDERED: LEVEMIR SUBQ SCH (23:16)
[2018-08-25] MEDS ORDERED: TYLENOL PO PRN (23:16)
[2018-08-25] MEDS ORDERED: INSULIN LISPRO 100 UNIT SQ SCH (23:16)
[2018-08-25] MEDS ORDERED: HUMALOG SUBQ SCH (23:16)
[2018-08-26] MEDS: ELIQUIS PO SCH ×3 (01:09→20:07)
[2018-08-26] MEDS: COREG PO SCH ×3 (01:09→20:36)
[2018-08-26] MEDS: IMDUR PO SCH ×3 (01:09→20:36)
[2018-08-26] MEDS: LIPITOR PO SCH ×2 (01:09→20:07)
[2018-08-26] MEDS: APRESOLINE PO SCH ×3 (01:09→20:35)
[2018-08-26] MEDS: NEURONTIN PO SCH ×3 (01:09→20:07)
[2018-08-26] MEDS ORDERED: INSULIN PEN NEEDLES ONE (01:19)
[2018-08-26 06:55] LABS: BASO# 0.02 X1000 (0.0-0.2); BASO% 0.2 % (0.0-0.8); EOS# 0.58 X1000 (0.0-0.7); EOS% 6.6 % (0.0-10.0); HEMATOCRIT 38.4 % (42.0-52.0); HEMOGLOBIN 12.5 g/dL (14.0-18.0); IMM GRAN# 0.02 X1000 (0.0-0.04); IMM GRAN% 0.2 % (0.0-0.5); LYMPH# 1.35 X1000 (1.2-3.4); LYMPH% 15.5 % (20.5-51.1); MCHC 32.6 g/dL (33-37); MCV 85.9 FL (81-99); MONO# 0.95 X1000 (0.11-0.59); MONO% 10.9 % (1.7-9.3); MPV 11.3 FL (7.4-10.4); NEUT# 5.81 X1000 (1.4-6.5); NEUT% 66.6 % (42.2-75.2); PLT 200 X1000 (130-400); RBC 4.47 XMIL (4.7-6.1); WBC 8.73 X1000 (4.8-10.8)
[2018-08-26 07:49] LABS: ALB/GLOB RATIO 1.1; ALBUMIN 3.2 g/dL (3.5-5.0); CALCIUM 8.4 mg/dL (8.8-10.2); CREATININE 2.9 mg/dL (0.7-1.2); POTASSIUM 4.2 mmol/L (3.5-5.1); TOTAL BILIRUBIN 0.56 mg/dL (0.20-1.00); TOTAL PROTEIN 6.1 g/dL (6.3-8.3)
[2018-08-26] MEDS ORDERED: PEPCID PO SCH (09:00)
[2018-08-26] MEDS: ZYLOPRIM PO SCH (09:29)
[2018-08-26] MEDS: CELEXA PO SCH (09:29)
[2018-08-26] MEDS: MAG-OX PO SCH (09:29)
[2018-08-26] MEDS: ASPIRIN PO SCH (09:29)
[2018-08-26] MEDS: COZAAR PO SCH (09:29)
[2018-08-26] MEDS: FLOMAX PO SCH (09:29)
[2018-08-26] MEDS: DEMADEX PO SCH (09:30)
[2018-08-26] MEDS: NS + KCL 20 MEQ 1,000 ML IV SCH (10:27)
[2018-08-26] MEDS: LEVEMIR SUBQ SCH ×2 (10:27→21:47)
--- NOTE | 2018-08-26 10:40 | GASTROENTEROLOGY CONSULTATION ---
DATE: 08/26/2018 REASON FOR CONSULTATION: diarrhea, liver lesion HPI: Mr. Alexi Mills is a 72 year old man with HTN, HLD, CAD s/p MT and stents, CHF, IDDM2, CKD, and GERD who presented with voluminous watery diarrhea that started 5 days ago without nausea, vomiting, abdominal pain, rectal bleeding, or melena. He also denies fever, chills, night sweats or weight loss. He denies any changes in diet, recent antibiotics in the last few weeks, or sick contacts with similar symptoms. He does admit to starting Trulicity 3 days prior to onset of symptoms. Stool studies for cdiff was negative. The patient reports having a colonoscopy within the last year with Dr. Walton. ROS: As per HPI, otherwise 12-point ROS negative PMH: HTN, HLD, CAD s/p MT and stents, CHF, IDDM2, CKD, GERD, BPH, gallstones, nephrolithiasis, history of recurrent UTI, depression PSH: Back surgery FH: No FHx of GI or liver diseases SH: Remote smoker. Rare ETOH. No drug use. MEDS: toresmide, tamsulosin, magnesium oxide, losartan, isosorbide mononitrate, lispro, Levemir, Trulicity, hydralazine, gabapentin, famotidine, citalopram, carvedilol, aspirin, apixaban, allopurinol ALL: Amiodarone PHYSICAL EXAMINATION: VS: T 97.9 HR 75 RR 19 BP 101/57 O2 98% RA GEN: awake, alert, NAD HEENT: anicteric, MMM, EOMI NECK: supple, no jvd CV: RRR, no murmurs PULM: CTAB, no wheezing ABD: soft NT, ND, NABS, no rebound or guarding EXT: no cce NEURO: nonfocal LABS: WBC 11 hgb 13.5 plt 190 Na 136 K 4.6 Cl 96 CO2 21 BUN 57 Cr 3.6 glu 304 Alb 3.6 pro 6.7 Tbili 0.58 AST 37 ALT 17 ALP [address] A/P without contrast 08/25 IMPRESSION: 1. Indeterminate mass in the liver dome. The overlying deformity of the capsule suggests this is chronic. Malignancy cannot be excluded. Clinical correlation recommended. There is a second stable appearing smaller mass in the inferior liver adjacent to the gallbladder fossa. 2. Nonobstructing right renal stone. 3. Small gallstones. 4. Severe diverticulosis coli. A/P: Mr. Alexi Mills is a 72 year old man with HTN, HLD, CAD s/p MT and stents on apixiban, CHF, IDDM2, CKD, and GERD who presented with voluminous watery diarrhea in the setting of starting Trulicity, which is a common side effect. DDx includes infectious etiology. Inflammatory diarrhea less likely. Noncon CT negative for colitis or diverticulitis. CTAP showed indeterminate liver lesion. #Diarrhea: likely medication side effect - continue supportive care - advance diet as tolerated - imodium as needed for diarrhea - IVFs - if no improvement, then can consider diagnostic colonoscopy +/- EGD as outpatient #Liver lesion: no personal or FHx of liver disease/malignancy - will consider outpatient dynamic MRI once DOMINIQUE improves #DOMINIQUE on CKD: 2/2 to diarrhea; improving with IVFs #IDDM2: SSI, consider alternative medication to Trulicity; defer mgmt to primary #CAD: stable #GERD: controlled Will follow with you. Please call with questions or concerns cc: Ramon Woo MD [facility]
[2018-08-26] MEDS: HUMULIN R SUBQ SCH ×3 (10:41→21:47)
[2018-08-26 12:20] LABS: BILIRUBIN URINE NEGATIVE (NEGATIVE); BLOOD URINE NEGATIVE (NEGATIVE); COLOR YELLOW; GLUCOSE URINE 70 mg/dL (NEGATIVE); KETONE URINE NEGATIVE (NEGATIVE); LEUKOCYTES URINE NEGATIVE (NEGATIVE); NITRITE URINE NEGATIVE (NEGATIVE); PH URINE 5.5; PROTEIN URINE TRACE mg/dL (NEGATIVE); SP GRAVITY URINE 1.015; TURBIDITY URINE CLEAR (CLEAR); URINE SOURCE VOIDED; UROBILINOGEN URINE NORMAL (NORMAL)
[2018-08-26 12:43] LABS: UR EPITHELIAL CELLS <10 /HPF (<10); URINE BACTERIA NEGATIVE /HPF; URINE RBC <10 /HPF (<10); URINE WBC <10 /HPF (<10)
[2018-08-26 13:16] LABS: URINE CASTS NONE SEEN
[2018-08-26] MEDS ORDERED: CALMOSEPTINE OINTMENT TOP PRN (16:32)
[2018-08-26] MEDS: CALMOSEPTINE OINTMENT TOP SCH ×2 (18:27→20:36)
--- NOTE | 2018-08-26 23:31 | PROGRESS NOTE ---
DATE: 08/26/2018 SUBJECTIVE: Patient evaluated earlier this morning. History and physical per Dr. Woo noted, and episodes of diarrhea noted. Patient has had a colonoscopy within the past 2 years, per Dr. Walton. We note on labs he has worsened prerenal azotemia on top of mild CKD. The patient also has been having the diarrhea for the last few days. He has been followed at the [facility] as well by Dr. Miguelina Beaver, and she had transferred him over to some other diabetic medicines, to include [facility] for a brief span, which may have called the diarrheal episodes, it is unclear if this is the case. OBJECTIVE: Vital Signs: Afebrile, pulse 83, respirations 18, blood pressure 110/67, O2 saturation 100% on room air. Cardiovascular: Irregularly irregular. Lungs: Clear. Abdomen: Very protuberant, soft. No point tenderness. Extremities: No major edema. Neuro: Cranial nerves are intact. Nonfocal. LAB DATA: Shows white count down from 11 to 8.7, hemoglobin 12.5, platelets 200,000. Sodium 140, potassium 4.2, chloride 106, CO2 of 19, BUN 62, creatinine 2.9, that is down from 3.6 yesterday. Blood sugar 205. LFTs are normal. Pre-albumin 19.6. Urinalysis shows 70 of glucose, trace protein. IMAGING: CT scan of the abdomen and pelvis done yesterday reveals an indeterminate mass in the liver dome, and also this appears to be chronic, malignancy cannot be excluded. Also, a 2nd more stable appearing smaller mass in the inferior liver adjacent to the gallbladder fossa noted. Nonobstructing right renal stone, small gallstones, severe diverticulosis. ASSESSMENT: 1. Diarrhea. 2. Prerenal azotemia on top of chronic kidney disease, mild. 3. Morbid obesity. 4. Insulin-dependent diabetes mellitus. 5. Congestive heart failure. 6. Coronary artery disease. 7. Hypertension. 8. Chronic severe low back pain with degenerative disk disease. 9. Depression. 10. Two nonspecific liver lesions, rule out malignancy. PLAN: Dr. Pritchett is evaluating the patient from a GI standpoint. I have obtained stool studies to look for C diff, and that is negative. We will place him on low-dose Levemir and high dose SSI, and continue diabetic diet at this point. Give him IV fluids and monitor his renal status closely. He has received some IV fluids on admission. Otherwise, continue his home medication. We are going to resume the insulin he was on before, before Dr. Beaver changed his diabetic regimen. cc: MD Ramon Reyna MD
[2018-08-27] MEDS: NS + KCL 20 MEQ 1,000 ML IV SCH ×3 (04:09→13:40)
[2018-08-27] MEDS: HUMULIN R SUBQ SCH ×4 (06:02→21:37)
[2018-08-27 07:29] LABS: BASO# 0.02 X1000 (0.0-0.2); BASO% 0.3 % (0.0-0.8); EOS# 0.53 X1000 (0.0-0.7); EOS% 8.6 % (0.0-10.0); HEMATOCRIT 37.6 % (42.0-52.0); HEMOGLOBIN 12.1 g/dL (14.0-18.0); IMM GRAN# 0.02 X1000 (0.0-0.04); IMM GRAN% 0.3 % (0.0-0.5); LYMPH# 1.23 X1000 (1.2-3.4); MCH 27.6 PG (27-31); MCHC 32.2 g/dL (33-37); MCV 85.6 FL (81-99); MONO# 0.86 X1000 (0.11-0.59); MPV 11.3 FL (7.4-10.4); NEUT% 56.8 % (42.2-75.2); PLT 204 X1000 (130-400); RBC 4.39 XMIL (4.7-6.1); WBC 6.16 X1000 (4.8-10.8)
[2018-08-27 08:06] LABS: CALCIUM 8.5 mg/dL (8.8-10.2); CREATININE 1.9 mg/dL (0.7-1.2); POTASSIUM 4.4 mmol/L (3.5-5.1)
[2018-08-27] MEDS: MAG-OX PO SCH (09:16)
[2018-08-27] MEDS: ASPIRIN PO SCH (09:16)
[2018-08-27] MEDS: APRESOLINE PO SCH ×2 (09:16→21:26)
[2018-08-27] MEDS: FLOMAX PO SCH (09:17)
[2018-08-27] MEDS: ZYLOPRIM PO SCH (09:17)
[2018-08-27] MEDS: ELIQUIS PO SCH ×2 (09:17→21:27)
[2018-08-27] MEDS: COZAAR PO SCH (09:17)
[2018-08-27] MEDS: NEURONTIN PO SCH ×2 (09:17→21:27)
[2018-08-27] MEDS: DEMADEX PO SCH (09:17)
[2018-08-27] MEDS: CALMOSEPTINE OINTMENT TOP SCH ×4 (09:17→22:16)
[2018-08-27] MEDS: CELEXA PO SCH (09:17)
[2018-08-27] MEDS: COREG PO SCH ×2 (09:17→21:26)
[2018-08-27] MEDS: SODIUM CHLORIDE 0.9% INJ SCH ×2 (09:22→21:27)
[2018-08-27] MEDS: PROTONIX IV SCH ×2 (09:22→21:27)
[2018-08-27] MEDS: LEVEMIR SUBQ SCH ×2 (09:23→21:36)
--- NOTE | 2018-08-27 11:45 | GASTROENTEROLOGY PROGRESS NOTE ---
DATE: 08/27/2018 ATTENDING PHYSICIAN: Dr. Bowman. SUBJECTIVE: The patient is currently feeling better. He denies any fevers, rigors, or chills. He denies any nausea or vomiting. He had 2 liquid bowel movements yesterday. PHYSICAL EXAMINATION: Vital Signs: Temperature 98.2, pulse rate of 70, respiratory rate of 18, blood pressure of 130/84, saturating 94%. Body weight of 300 pounds, BMI 43 kg/m2. General Appearance: The patient is morbidly obese, lying in bed, in no acute distress. HEENT: Mild pallor. No icterus. Neck: Supple. Abdomen: Obese, soft, nontender, nondistended. No guarding or rebound. Extremities: No cyanosis, clubbing. Neurologic: Alert, awake, oriented x3. LABS: Hemoglobin and hematocrit are 12.1 and 37.6, white count of 6.1, platelet count of 204,000. His hematocrit is slowly dropping down from 42.1 to 37.6. Sodium of 142, potassium 4.4, chloride of 100, bicarb 21, anion gap 13, BUN of 51, creatinine 1.9, glucose of 146, calcium is 8.5. AST 28, ALT 14, alkaline phosphatase 72, total protein 6.2, albumin of 3.2, prealbumin 19.6. Urinalysis showing trace protein and positive glucose. His C. difficile toxin was negative. A CT scan of the abdomen and pelvis showed indeterminate mass in the liver dome, nonobstructing right renal stones, small gallstones, and severe diverticulosis coli. IMPRESSION AND PLAN: 1. Liver mass. We will check an abdominal ultrasound. We will check AFP level, echinococcus level, entamoeba histolytica antibody. 2. Diarrhea. This could be secondary to medication side effect versus irritable bowel syndrome from severe diverticulosis as seen on CT scan. We will check complete panel of stool studies. 3. Dehydration. He is getting intravenous fluids per the primary team. 4. Obesity. Patient counseled to lose weight. 5. Diabetes. He is on Levemir and sliding-scale regular insulin. 6. Gastrointestinal prophylaxis. We will switch to Protonix twice daily as the patient is dropping hematocrit which could also be dilutional but this can be switched down to Zantac twice daily on discharge. 7. Gout. He is on allopurinol. 8. Coronary artery disease. He is on Eliquis. 9. Gastrointestinal prophylaxis with proton pump inhibitors. 10. Bowel regimen. I will start him on Metamucil as the patient has diverticulosis. The patient will begin a diverticulosis diet. Avoid excessive corn, nuts, and seeds in diet. 11. The patient will follow up in the clinic in 4 weeks of discharge. The above plan was discussed with the patient and all questions were answered. Please call us with any further questions. cc: MD Ramon Laureano MD Stephen Harbin
--- NOTE | 2018-08-27 13:25 | PROGRESS NOTE ---
DATE: 08/27/2018 SUBJECTIVE: The patient has had less diarrhea, had 2 large bowel movements yesterday. He feels like this began when he had switched over to Trulicity, trying a [facility]. We had tried that before, and he had difficulty in the past, and we had settled out on a regimen that was doing well for him prior to this change. He overall is feeling better. The worrisome thing is that his CT of the abdomen and pelvis revealed an indeterminate mass in the liver dome with a possible capsule around it and also he had a 2nd smaller mass near the gallbladder fossa, and he has some gallstones that we knew about. He has severe diverticulosis as well. OBJECTIVE: Afebrile pulse 78, respirations 18, blood pressure 137/84, O2 saturation room air 95% to 100%.Cardiovascular: Irregularly irregular. Lungs: CTA. Abdomen: Very protuberant. No pinpoint tenderness. Extremities: No major edema. Neurologic: Cranial nerves are intact. No focal deficits. LABORATORY DATA: White count 6.1, hemoglobin 12.1, platelets 204,000. Sodium 142, potassium 4.4, chloride 108, CO2 of 21, BUN 54, creatinine 1.9, glucose 140s. ASSESSMENT: 1. Diarrhea, possibly related to Trulicity usage. 2. Prerenal azotemia on top of chronic kidney disease (CKD), mild. 3. Morbid obesity. 4. Insulin-dependent diabetes mellitus (IDDM). 5. Congestive heart failure (CHF), compensated. 6. Coronary artery disease (CAD). 7. Hypertension. 8. Chronic severe low back pain with degenerative disk disease (DDD). 9. Depression. 10. Two nonspecific liver lesions. Rule out malignancy. PLAN: Dr. Shah has seen the patient today and he is working up his diarrhea difficulties and plans are being made for possible other tests such as MRI later on for his liver. So far, C difficile toxin is negative. We have him on sliding scale insulin and Levemir, and we have taken him off the Trulicity. He is on some IV fluids and I have reduced the rate on that. We will ask Physical Therapy to see the patient, and the family has again inquired about possible long-term care facility. We will ask Fabrication Machine Operator to get involved in that regard. Otherwise, the patient has been set up for halfway care on several occasions, but always decides to go home after a few weeks in the halfway. Family is having difficulty taking care of him, and this becomes a worse problem each day as his is ill and not able to take care of him. cc: MD Ramon Reyna MD
--- NOTE | 2018-08-27 17:54 | Diag Imaging Result Doc PS360 ---
US ABDOMEN-COMPLETE - 08/27/2018 INDICATION: Liver lesions on CT scan COMPARISON: CT abdomen pelvis 08/25/2018 FINDINGS: The exam is very challenging due to patient body size and condition. The liver dome is not well seen. There is diffuse fatty change of the liver. There is splenomegaly. The spleen measures 14.4 x 14 x 6.2 cm. The right kidney is obscured. The left kidney is normal. The gallbladder is collapsed. Common bile duct measures 4.5 mm. Pancreas is obscured. Aorta and IVC are obscured. Main portal vein is patent. IMPRESSION: Fatty liver. Splenomegaly. Suboptimal exam due to patient factors. Electronically signed by Zach Shine 08/27/2018 5:52 PM
[2018-08-27] MEDS: LIPITOR PO SCH (21:27)
[2018-08-27] MEDS: IMDUR PO SCH (21:27)
[2018-08-28] MEDS: HUMULIN R SUBQ SCH ×4 (06:22→21:33)
[2018-08-28] MEDS: NS + KCL 20 MEQ 1,000 ML IV SCH (06:24)
[2018-08-28 07:46] LABS: BASO# 0.03 X1000 (0.0-0.2); BASO% 0.5 % (0.0-0.8); EOS# 0.49 X1000 (0.0-0.7); EOS% 7.5 % (0.0-10.0); HEMATOCRIT 38.2 % (42.0-52.0); HEMOGLOBIN 12.1 g/dL (14.0-18.0); IMM GRAN# 0.02 X1000 (0.0-0.04); IMM GRAN% 0.3 % (0.0-0.5); LYMPH# 1.23 X1000 (1.2-3.4); LYMPH% 18.9 % (20.5-51.1); MCH 27.6 PG (27-31); MCHC 31.7 g/dL (33-37); MCV 87.2 FL (81-99); MONO# 0.87 X1000 (0.11-0.59); MONO% 13.3 % (1.7-9.3); MPV 11.6 FL (7.4-10.4); NEUT# 3.88 X1000 (1.4-6.5); NEUT% 59.5 % (42.2-75.2); PLT 188 X1000 (130-400); RBC 4.38 XMIL (4.7-6.1); WBC 6.52 X1000 (4.8-10.8)
[2018-08-28 08:26] LABS: CALCIUM 9.1 mg/dL (8.8-10.2); CREATININE 1.3 mg/dL (0.7-1.2); POTASSIUM 4.7 mmol/L (3.5-5.1)
[2018-08-28] MEDS: MAG-OX PO SCH (08:32)
[2018-08-28] MEDS: FLOMAX PO SCH (08:32)
[2018-08-28] MEDS: ZYLOPRIM PO SCH (08:33)
[2018-08-28] MEDS: CELEXA PO SCH (08:33)
[2018-08-28] MEDS: NEURONTIN PO SCH ×2 (08:33→21:24)
[2018-08-28] MEDS: DEMADEX PO SCH (08:33)
[2018-08-28] MEDS: METAMUCIL PO SCH (08:33)
[2018-08-28] MEDS: ELIQUIS PO SCH ×2 (08:33→21:25)
[2018-08-28] MEDS: CALMOSEPTINE OINTMENT TOP SCH ×4 (08:33→21:34)
[2018-08-28] MEDS: COREG PO SCH ×2 (08:33→21:25)
[2018-08-28] MEDS: APRESOLINE PO SCH ×2 (08:33→21:24)
[2018-08-28] MEDS: ASPIRIN PO SCH (08:33)
[2018-08-28] MEDS: COZAAR PO SCH (08:33)
[2018-08-28] MEDS: LEVEMIR SUBQ SCH ×2 (08:34→21:33)
[2018-08-28] MEDS: PROTONIX IV SCH ×2 (08:37→21:26)
[2018-08-28] MEDS ORDERED: NS + KCL 20 MEQ 1,000 ML IV SCH (13:12)
--- NOTE | 2018-08-28 15:18 | PROGRESS NOTE ---
DATE: 08/28/2018 SUBJECTIVE: The patient is sitting up. He seems to be in good spirits. He had a visit with the wound care nurse regarding some skin breakdown interdigitally on his toes and on the bottom of his feet. He also has grade 2 early sacral decubitus ulcer. The patient has been very inactive at home. He has done well in the past. We set him up for alf care on 3 different occasions and he did well with physical therapy there briefly and then each time would coerce his family to take him home and they would take him home, but he would sit in a chair and not do well. He has not been able to help with his care much due to his morbid obesity and his family is not able to take care of him any longer. His daughter and son-in-law have done extremely well in regard to his care, but they are extremely tired at this point, and they are having to work, and his has had surgery recently and has orthopedic and back difficulties and cannot lift the patient. He has been notified of this and I advised him to go to the alf care facility and receive ongoing treatment. He has been very reluctant to do so, but he is contemplating that at this point. He has had no significant diarrhea, possibly had some bright red blood, he thinks it was in his urine, but it is listed by the nurses as possibly being rectal. OBJECTIVE: Vital Signs: Afebrile, pulse 81, respirations 18, blood pressure 146/83, O2 saturation on room air 95 to 100 percent. Cardiovascular: Irregularly irregular. Lungs: CTA. Abdomen: Protuberant, soft, nontender, nondistended. Extremities: No major lower extremity edema. There is some mild redness, skin breakdown, and desquamation interdigitally on the bottom his feet. Sacral decubitus ulcers early. Neurologic: Cranial nerves are intact. No focal deficits. LABORATORY DATA: Sodium 142, potassium 4.7, chloride 109, CO2 23, BUN 40, creatinine 1.3, glucose 200 to 300 primarily, calcium 9.1. White count 6.5, hemoglobin 12.1, platelets 188,000. ASSESSMENT: 1. Diarrhea, resolved. 2. Possible hematochezia. 3. Prerenal azotemia on top of chronic kidney disease, mild, back to baseline essentially at 1.3 on his creatinine. 4. Morbid obesity. 5. Insulin-dependent diabetes mellitus. 6. Congestive heart failure, compensated. 7. Coronary artery disease. 8. Hypertension. 9. Chronic severe low back pain with degenerative disk disease. 10. Depression. 11. Two nonspecific liver lesions being followed by Gastroenterology. 12. Tinea pedis. 13. Stage II sacral ulcer. PLAN: We discussed that if he does not work with physical therapy in regard to his care, he may worsen with sacral decubitus ulcers and difficulties there. He is contemplating allowing going to the alf, which is his best bet to do well. Gastroenterology has plans for MRI later on of the liver lesions. We are going to up his Levemir closer to his home doses and continue high- dose sliding scale insulin, NovoLog insulin. Social workers and physical therapy working vigorously with the patient as is the wound care nurse. I have spoken with the family in detail regarding his ongoing care and they have expressed their wishes to me in great detail. cc: MD Ramon Reyna MD
--- NOTE | 2018-08-28 19:50 | PROVIDER PROGRESS NOTE ---
Progress Note SUBJECTIVE: No acute overnight events. Afebrile. No N/V. No CP, SOB, abdominal pain, or diarrhea. Patient is tolerating PO diet. OBJECTIVE: Last Vital Signs Temp 97.0 F L 08/28/18 16:00 Pulse 72 08/28/18 16:00 Resp 18 08/28/18 16:00 BP 124/49 08/28/18 16:00 Pulse Ox 100 08/28/18 16:00 Height 5 ft 10 in Weight 300 lb GEN: awake, alert, NAD HEENT: anicteric, MMM NECK: supple, no jvd PULM: CTAB, no wheezing ABD: obese, soft NT/ND, NABS, no rebound or guarding EXT: multiple small ulcerations and bruising of toes bilaterally, chronic NEURO: nonfocal LABS: 08/28/18 08/28/18 07:07 07:07 WBC 6.52 Hgb 12.1 L Plt Count 188 Sodium 142 Potassium 4.7 Chloride 109 H Carbon Dioxide 23 L BUN 40 H Creatinine 1.3 H Glucose 193 H A/P: Mr. Alexi Mills is a 72 year old man with HTN, HLD, CAD s/p NH and stents on apixiban, CHF, IDDM2, CKD, and GERD who presented with voluminous watery d iarrhea in the setting of starting Trulicity suggestive for adverse side effect of medication. Cdiff negative. Diarrhea resolved. CTAP showed indeterminate liver lesion. This lesion is not cystic or loculated; therefore, unlikely infectious. DOMINIQUE improving. Recommend quad phase CT or dynamic MRI once creatinine is back to baseline. This can be done as outpatient. #Diarrhea: resolved #Liver lesion: no personal or FHx of liver disease/malignancy - will consider outpatient dynamic MRI or quad phase CT as outpatient #DOMINIQUE on CKD: 2/2 to diarrhea; improved with IVFs #IDDM2: SSI, consider alternative medication to Trulicity; defer mgmt to primary #CAD: stable #GERD: controlled Patient is ok to be discharged from GI standpoint with follow-up in 1-2 weeks. Will sign off. Please call with questions or concerns
[2018-08-28] MEDS: LIPITOR PO SCH (21:25)
[2018-08-28] MEDS: IMDUR PO SCH (21:25)
[2018-08-28] MEDS: SODIUM CHLORIDE 0.9% INJ SCH (21:26)
[2018-08-28] MEDS: SANTYL OINT TOP SCH (21:34)
[2018-08-29] MEDS: HUMULIN R SUBQ SCH ×4 (06:02→21:40)
[2018-08-29] MEDS ORDERED: INSULIN PEN NEEDLES ONE (07:30)
[2018-08-29 07:46] LABS: BASO# 0.04 X1000 (0.0-0.2); BASO% 0.5 % (0.0-0.8); EOS# 0.63 X1000 (0.0-0.7); EOS% 8.2 % (0.0-10.0); HEMATOCRIT 38.6 % (42.0-52.0); HEMOGLOBIN 12.4 g/dL (14.0-18.0); IMM GRAN# 0.03 X1000 (0.0-0.04); IMM GRAN% 0.4 % (0.0-0.5); LYMPH# 1.66 X1000 (1.2-3.4); LYMPH% 21.7 % (20.5-51.1); MCH 27.8 PG (27-31); MCHC 32.1 g/dL (33-37); MCV 86.5 FL (81-99); MONO# 1.04 X1000 (0.11-0.59); MONO% 13.6 % (1.7-9.3); NEUT# 4.26 X1000 (1.4-6.5); NEUT% 55.6 % (42.2-75.2); PLT 202 X1000 (130-400); RBC 4.46 XMIL (4.7-6.1); RDW 15.9 % (11.5-14.5); WBC 7.66 X1000 (4.8-10.8)
[2018-08-29 08:05] LABS: AGAP 12; BUN 26 mg/dL (8-22); CALCIUM 9.6 mg/dL (8.8-10.2); CHLORIDE 104 mmol/L (98-107); COSMO 291; CREATININE 1.1 mg/dL (0.7-1.2); ESTIMATED GFR > 60; GLUCOSE 197 mg/dL (70-104); POTASSIUM 4.5 mmol/L (3.5-5.1); SODIUM 141 mmol/L (136-145); TCO2 25 mmol/L (25-35)
[2018-08-29] MEDS: PROTONIX IV SCH ×2 (08:56→21:40)
[2018-08-29] MEDS: SODIUM CHLORIDE 0.9% INJ SCH ×2 (08:56→21:40)
[2018-08-29] MEDS: DEMADEX PO SCH (08:57)
[2018-08-29] MEDS: NEURONTIN PO SCH ×2 (08:57→21:40)
[2018-08-29] MEDS: COZAAR PO SCH (08:57)
[2018-08-29] MEDS: APRESOLINE PO SCH ×2 (08:57→21:42)
[2018-08-29] MEDS: COREG PO SCH ×2 (08:57→21:40)
[2018-08-29] MEDS: ZYLOPRIM PO SCH (08:57)
[2018-08-29] MEDS: FLOMAX PO SCH (08:57)
[2018-08-29] MEDS: METAMUCIL PO SCH (08:57)
[2018-08-29] MEDS: ASPIRIN PO SCH (08:57)
[2018-08-29] MEDS: ELIQUIS PO SCH ×2 (08:57→21:40)
[2018-08-29] MEDS: LEVEMIR SUBQ SCH ×2 (08:58→21:41)
[2018-08-29] MEDS: CALMOSEPTINE OINTMENT TOP SCH ×4 (08:58→21:45)
[2018-08-29] MEDS: SANTYL OINT TOP SCH (09:05)
[2018-08-29] MEDS: MAG-OX PO SCH (09:09)
[2018-08-29] MEDS: CELEXA PO SCH (09:09)
--- NOTE | 2018-08-29 10:16 | PROGRESS NOTE ---
DATE: 08/29/2018 SUBJECTIVE: Patient is stable. He has no complaints today. He is slowly agreeing to go to the fdc in order to help himself and his family as they are unable to care for him now, as he is very obese man that cannot ambulate and they have gone as far as they can regarding his care at home. OBJECTIVE: Vital Signs: Afebrile. Vital signs stable. CV: Irregularly irregular. Lungs: Clear to auscultation. Abdomen: Very protuberant, large, active bowel sounds, nontender, nondistended. Extremities: No edema. The dry skin on his feet look much better today after care by the nursing staff yesterday. ASSESSMENT: 1. Diarrhea, resolved, possibly secondary to [facility]. 2. Chronic kidney disease. 3. Morbid obesity. 4. Insulin-dependent diabetes mellitus. 5. Compensated congestive heart failure. 6. Coronary artery disease. 7. Hypertension. 8. Chronic severe low back pain with degenerative disk disease. 9. Depression. 10. Two nonspecific liver lesions, followed by Gastroenterology. 11. Dry skin on the feet instead of tinea pedis. 12. Stage II sacral decubitus ulcer. PLAN: Continue care of the latter per the wound care team. Continue Levemir and SSI for blood sugar control and continue physical therapy. We are awaiting sr. social media & mobile manager to come up with the fdc bed. cc: MD Ramon Reyna MD MTDD
--- NOTE | 2018-08-29 14:58 | GASTROENTEROLOGY PROGRESS NOTE ---
DATE: 08/29/2018 Requesting Physician: Dr. Bowman. SUBJECTIVE: Patient is currently stable. He denies any fevers, rigors or chills. He is eating better. He is moving his bowels. OBJECTIVE: Vital signs: Temperature 98.1 degrees, pulse of 91, respiratory rate 18, blood pressure 130/82, saturating 98% room air. Body weight of 300 pounds, BMI 43 kg/m. General Appearance: Obese, lying in bed, in no acute distress. HEENT: Mild pallor. No icterus. Neck: Supple. Abdomen: Obese, nondistended. No guarding. Extremities: No cyanosis and clubbing. Neurologic: Awake and alert. LABORATORY DATA: Hemoglobin and hematocrit is 12.4 and 38.6, white count of 7.6, platelet count of 202,000. Sodium 140, potassium 4.5, chloride 104, bicarb 25, anion gap 12, BUN of 26, creatinine 1, glucose of 197. Calcium 9.6. AFP is 6.4. Other studies like echinococcus antibody and Entamoeba histolytica antibody were cancelled. According to the note they have been reordered but I do not see the results of those yet. IMPRESSION AND PLAN: 1. Liver lesion. Likely benign. AST is normal. We will follow up on the results of Entamoeba histolytica antibody and echinococcus antibody. In this regard, the patient will follow up in the clinic as an outpatient. Patient may benefit from an MRI of the abdomen to evaluate and define the liver lesion. This will be done as an outpatient when his kidney function improves. 2. Acute kidney injury on chronic kidney disease. It is improving with IV fluids. 3. Type 2 diabetes. He is on sliding scale. 4. Coronary disease. Aware and stable. 5. Reflux disease. Continue to follow gastroesophageal reflux lifestyle changes. 6. History of hypertension, hyperlipidemia, coronary disease status post myocardial infarction and stents, on Eliquis. Aware. 7. History of congestive heart failure. Aware. 8. Mild anemia. Continue to watch for now. 9. Gastrointestinal prophylaxis with Protonix. 10. Diverticulosis on the CT scan, severe in the distal colon. We will keep him on Metamucil 1 tablespoon daily. 11. Above plans were discussed with the patient and all questions answered. Please call us with any further questions. cc: MD Ramon Laureano MD Stephen W. Harbin, MD MTDD
[2018-08-29] MEDS: LIPITOR PO SCH (21:40)
[2018-08-29] MEDS: IMDUR PO SCH (21:40)
[2018-08-30] MEDS: HUMULIN R SUBQ SCH ×4 (06:15→22:15)
[2018-08-30] MEDS: LEVEMIR SUBQ SCH ×2 (11:30→22:16)
[2018-08-30] MEDS: DEMADEX PO SCH (11:31)
[2018-08-30] MEDS: MAG-OX PO SCH (11:31)
[2018-08-30] MEDS: COREG PO SCH ×2 (11:31→22:14)
[2018-08-30] MEDS: METAMUCIL PO SCH (11:31)
[2018-08-30] MEDS: FLOMAX PO SCH (11:32)
[2018-08-30] MEDS: CALMOSEPTINE OINTMENT TOP SCH ×4 (11:32→22:39)
[2018-08-30] MEDS: ELIQUIS PO SCH ×2 (11:32→22:14)
[2018-08-30] MEDS: ASPIRIN PO SCH (11:32)
[2018-08-30] MEDS: APRESOLINE PO SCH ×2 (11:32→22:14)
[2018-08-30] MEDS: NEURONTIN PO SCH ×2 (11:32→22:14)
[2018-08-30] MEDS: ZYLOPRIM PO SCH (11:32)
[2018-08-30] MEDS: PROTONIX IV SCH ×2 (11:32→22:14)
[2018-08-30] MEDS: COZAAR PO SCH (11:32)
[2018-08-30] MEDS: CELEXA PO SCH (11:32)
[2018-08-30] MEDS: SANTYL OINT TOP SCH (11:33)
[2018-08-30] MEDS ORDERED: SALINE LOCK IV FLUID XX ONE (11:55)
--- NOTE | 2018-08-30 12:20 | PROGRESS NOTE ---
DATE: 08/30/2018 SUBJECTIVE: The patient is stable. He is having 1 to 2 bowel movements a day. LABORATORY DATA: Stool studies have been negative thus far to include C. difficile toxin and C. difficile antigen. OBJECTIVE: Afebrile. Vital signs stable. CV: Irregularly irregular. Lungs: CTA. Abdomen: Very protuberant, soft, nontender. Extremities: No edema. Neurologic: Nonfocal. Cranial nerves intact. ASSESSMENT: 1. Chronic kidney disease, very mild, now back to baseline. 2. Morbid obesity. 3. Insulin-dependent diabetes mellitus. 4. Compensated congestive heart failure. 5. Chronic atrial fibrillation, on chronic anticoagulation with Eliquis. 6. Coronary artery disease. 7. Hypertension. 8. Chronic severe low back pain with degenerative disk disease. 9. Depression. 10. Two nonspecific liver lesions, followed by gastroenterology. 11. Dry skin, lower extremities and feet. 12. Stage II sacral decubitus ulcer. PLAN: We will increase his Levemir back up toward his home dosage. Continue SSI. Continue physical therapy. We are awaiting psychotherapist social worker to come up with a bed regarding long-term half-way placement. cc: MD Ramon Reyna MD
--- NOTE | 2018-08-30 15:04 | GASTROENTEROLOGY PROGRESS NOTE ---
DATE: 08/30/2018 SUBJECTIVE: Patient is currently sitting in bed. He denies any fevers, rigors, chills, abdominal pain. He has had a liquid brown stool today. He had 1 bowel movement yesterday also. His diarrhea slowed down. OBJECTIVE: Vital Signs: Temperature 97.7, pulse of 80, respiratory 20, blood pressure 132/72, saturating 98% on room air. General Appearance: Morbidly obese sitting in bed in no acute distress. HEENT: No pallor, no icterus. Neck: Supple. Abdomen: Morbidly obese. No guarding, no rebound. Extremities: No cyanosis, clubbing. Neuro: Alert, awake, oriented. LABS: Only labs done was blood glucose of 250. His AFP is normal 6.4. IMPRESSION AND PLAN: 1. Morbid obesity, patient counseled to lose weight. 2. Insulin-dependent diabetes mellitus being managed by primary team. 3. Compensated congestive heart failure aware. 4. Chronic atrial fibrillation. He is on anticoagulation Eliquis. 5. Chronic back pain and degenerative disease aware. 6. Nonspecific liver lesions, AFP is negative, he will possibly need MRI as an outpatient. 7. Mild anemia, continue watch for now. 8. Diverticulosis on the CT scan severe in distal colon, will keep on Metamucil 1 tablespoon daily, this could be contributing to his diarrhea. 9. The stool studies were negative for culture and white cells and negative ova and parasites, negative C difficile toxin and negative C difficile antigen. 10. The above plans with the patient and all questions answered. Please call us with any further questions. cc: Mariano Woo MD
[2018-08-30] MEDS: LIPITOR PO SCH (22:14)
[2018-08-30] MEDS: IMDUR PO SCH (22:14)
[2018-08-31] MEDS: HUMULIN R SUBQ SCH ×4 (06:18→21:33)
[2018-08-31] MEDS: PROTONIX IV SCH ×2 (09:19→21:19)
[2018-08-31] MEDS: APRESOLINE PO SCH ×2 (09:24→21:20)
[2018-08-31] MEDS: METAMUCIL PO SCH (09:24)
[2018-08-31] MEDS: COREG PO SCH ×2 (09:24→21:20)
[2018-08-31] MEDS: FLOMAX PO SCH (09:25)
[2018-08-31] MEDS: COZAAR PO SCH (09:25)
[2018-08-31] MEDS: ELIQUIS PO SCH ×2 (09:25→21:20)
[2018-08-31] MEDS: ASPIRIN PO SCH (09:25)
[2018-08-31] MEDS: DEMADEX PO SCH (09:25)
[2018-08-31] MEDS: CELEXA PO SCH (09:25)
[2018-08-31] MEDS: ZYLOPRIM PO SCH (09:25)
[2018-08-31] MEDS: MAG-OX PO SCH (09:25)
[2018-08-31] MEDS: NEURONTIN PO SCH ×2 (09:25→21:20)
[2018-08-31] MEDS: LEVEMIR SUBQ SCH ×2 (09:27→21:22)
[2018-08-31] MEDS: SANTYL OINT TOP SCH (09:36)
[2018-08-31] MEDS: CALMOSEPTINE OINTMENT TOP SCH ×4 (09:36→22:03)
[2018-08-31] MEDS: WELCHOL PO SCH ×2 (10:17→21:57)
--- NOTE | 2018-08-31 13:42 | PROGRESS NOTE ---
DATE: 08/31/2018 SUBJECTIVE: Patient is stable. We did have some resurgence of some diarrhea yesterday. OBJECTIVE: Vitals: Afebrile. Vital signs stable. CARDIOVASCULAR: Irregularly irregular. Lungs: Computed tomography angiography. Abdomen: Protuberant, soft, nontender, nondistended. Extremities: No edema. Neurologic: Nonfocal. Cranial nerves are intact. ASSESSMENT: 1. Diarrhea, episodic. 2. Chronic kidney disease, mild. 3. Morbid obesity. 4. Insulin-dependent diabetes mellitus. 5. Compensated congestive heart failure. 6. Chronic atrial fibrillation on chronic anticoagulation with Eliquis. 7. Coronary artery disease. 8. Hypertension. 9. Chronic severe low back pain with degenerative disk disease. 10. Depression. 11. Two nonspecific liver lesions, followed by Dr. Shah. 12. Dry skin, lower extremities and feet. 13. Stage II sacral decubitus ulcer. PLAN: Continue to escalate Levemir back to his home dosage. Continue SSI. Continue Physical Therapy. We will add Welchol to try to bulk up his stool and he has taken daily MiraLAX as well. He is stabilizing overall and family is extremely interested in care at the alf as they cannot take care of him at home. The patient is aware and at this point, seems to be agreeable. We will discharge him to the alf once bed becomes available. Hopefully, Welchol will help in bulking the stool at this point as the stool studies have been negative thus far. We will need outpatient MRI abdomen and he will follow up with Dr. Shah in about 3 weeks once he is discharged. He can be discharged in 1 to 2 days when a bed is available at the alf. cc: MD Ramon Reyna MD
--- NOTE | 2018-08-31 14:12 | GASTROENTEROLOGY PROGRESS NOTE ---
DATE: 08/31/2018 SUBJECTIVE: Resting in bed, he is feeling better. His diet is improving, he denies any fevers, rigors, chills. Denies abdominal pain. Vitals: Temperature 98.1, pulse of 80, respiratory 16, blood pressure 170/76 saturating 100% on room air, body weight of 300 pounds, BMI 43 kg. Patient morbidly obese lying in bed in no acute. HEENT: No pallor, no icterus. Neck: Supple. Abdomen: Obese, soft, nondistended. No guarding. Extremities: No cyanosis, clubbing. Neuro: He is awake, alert, oriented to time, place, and person. LABS: His stool studies were negative for culture. C difficile toxin and antigen were negative. Ova and parasites are negative. Stool for white cells were negative. I was able to review the procedure note from 02/17/[address] Walton with EGD showed superficial gastritis, few superficial small ulcers in antrum and duodenitis and on the colonoscopy he was found to have severe diverticulosis in the colon and he had retained stool fecal impaction. IMPRESSION AND PLAN: 1. Diarrhea is improving. Stool studies are negative. Will keep him on Metamucil 1 capsule every day. He has a last colon done [address] Walton[address] According to him it was normal. 2. He is also on Welchol 1875 mg p.o. b.i.d. Hold for constipation as patient has prior h/o constipation, severe diverticulosis and fecal impaction. 3. Liver cyst. AFP is negative. Needs to be followed up as an outpatient with ultrasound every couple years. 4. Morbid obesity, counseled lose weight. 5. Diabetes on sliding-scale insulin detemir and regular insulin. 6. Compensated congestive heart failure aware. Chronic atrial fibrillation on chronic anticoagulation Eliquis. 7. Coronary disease, hypertension aware. 8. Chronic low back pain, degenerative disk disease aware. 9. Depression aware. 10. Stage II sacral decubitus ulcer aware. 11. He will need to follow up with Dr. Walton who is his primary high value associate. 12. Above plan discussed with patient. All questions answered. Please call us with any further questions. cc: MD Ramon Laureano MD [facility]
[2018-08-31] MEDS ORDERED: INSULIN PEN NEEDLES ONE (20:38)
[2018-08-31] MEDS: IMDUR PO SCH (21:20)
[2018-08-31] MEDS: LIPITOR PO SCH (21:20)
[2018-09-01] MEDS: HUMULIN R SUBQ SCH ×3 (06:18→16:29)
--- NOTE | 2018-09-01 09:51 | DISCHARGE SUMMARY ---
ADMISSION DATE: 08/25/2018 DISCHARGE DATE: 09/01/2018 DIAGNOSES: 1. Diarrhea, pronounced. 2. Prerenal azotemia on top of mild chronic kidney disease with patient returning to baseline during the hospitalization. 3. Two liver lesions, indeterminate, followed by Gastroenterology, Dr. Shah, with plans of outpatient MRI within three weeks. Needs to follow up with Dr. Shah within two weeks, if at all possible, to get further testing. 4. Morbid obesity. 5. Insulin dependent diabetes mellitus. 6. Compensated congestive heart failure. 7. Chronic atrial fibrillation on chronic anticoagulation with Eliquis. 8. Coronary artery disease. 9. Hypertension. 10. Chronic severe low back pain with degenerative disc disease hampered by his weight. 11. Depression, situational. 12. Dry skin, lower extremities and feet, improved. 13. Stage 2 sacral decubitus ulcer improving with treatment per Wound Care nurse. 14. Gout, inactive on preventive medicine. 15. Asymptomatic cholelithiasis. 16. Nonobstructing right renal stone. 17. Severe diverticulosis. CONSULTANTS: Dr. Shah, Gastroenterology. PROCEDURES: 1. Abdominal and pelvic CT scan done without contrast on 08/25/2018 revealing indeterminate mass in the liver dome, suspect chronicity due to capsule around it. Also, smaller, stable mass in the inferior liver adjacent to the gallbladder fossa, nonobstructing right renal stone. Also, notably small gallstone and severe diverticulosis. 2. Abdominal ultrasound done 08/27/2018 revealed fatty liver, splenomegaly, suboptimal exam due to morbid obesity. REASON FOR ADMISSION AND HOSPITAL COURSE: The patient is a 72-year-old white male, followed in my medical practice. He suffers from severe IDDM, morbid obesity, mild CKD, and is hampered by chronic low back pain, making his mobility very poor. He has chronic atrial fibrillation and is on chronic anticoagulation with Eliquis. He is prone to falls. He has had [facility]. They had tried him on Trulicity and that seemed to give him some diarrhea. He had workup with negative stool studies. Dr. Shah and his team evaluated the patient in the hospital and he was found to have liver dome lesions x2, which are nonspecific, cannot rule out malignancy here. He is planned to follow up with Dr. Shah in two weeks for outpatient MRI. The diarrhea improved generally as the Trulicity wore off and we placed him on Levemir and SSI and he did well in regard to his blood sugars. Physical Therapy worked with the patient. He did have a sacral decubitus ulcer that responded to topical treatment. The patient had some dry skin over his feet and toes and that was treated well during the hospitalization. We gave him some Welchol to bulk the stools and adjusted the dose on that until we met the proper balance. The patient was eating well, a diabetic diet. His is in poor condition and his only daughter and his son-in-law have done all they can to help him remain independent, but the patient is very large and they cannot lift him any longer. He is resigned to residential care and the patient is in agreement at this point, although reluctant in the past. He will work on his weight to try to lose and improve his mobility. DISCHARGE MEDICATIONS: Tylenol p.r.n., Allopurinol 100 mg p.o. daily, Eliquis 5 mg p.o. b.i.d., aspirin 81 mg daily, Lipitor 40 mg p.o. at bedtime, Coreg 12.5 mg p.o. b.i.d., Celexa 20 mg p.o. daily, Welchol 625 mg one p.o. daily., Gabapentin 300 mg p.o. b.i.d., Santyl ointment topical daily to the sacral decubitus ulcer, hydralazine 50 mg p.o. b.i.d., Levemir insulin 60 units subcutaneously b.i.d. with medium dose sliding scale Humulin R insulin administered along with Accu-Chek that are checked 7, 11, 4, and 9, Imdur 30 mg p.o. at bedtime, losartan 25 mg p.o. daily, Calmoseptine ointment to the feet and toes four times a day, Metamucil one capsule daily, Pepcid 40 mg p.o. b.i.d., Flomax 0.4 mg p.o. daily, Demadex 20 mg p.o. q a.m. LABS: Notable labs at discharge - white count 7, hemoglobin 12.4, platelets 202,000. Blood sugars in the high 100s to low 200s at discharge. Sodium 141, potassium 4.5, BUN 26, creatinine 1.1. Prealbumin 19.6. AFP tumor marker during the hospital normal at 6.4. cc: MD Ramon Reyna MD
[2018-09-01] MEDS: ZYLOPRIM PO SCH (09:57)
[2018-09-01] MEDS: NEURONTIN PO SCH (09:57)
[2018-09-01] MEDS: CELEXA PO SCH (09:58)
[2018-09-01] MEDS: COREG PO SCH (09:58)
[2018-09-01] MEDS: ELIQUIS PO SCH (09:58)
[2018-09-01] MEDS: PROTONIX IV SCH (09:58)
[2018-09-01] MEDS: DEMADEX PO SCH (09:58)
[2018-09-01] MEDS: METAMUCIL PO SCH (09:58)
[2018-09-01] MEDS: COZAAR PO SCH (09:58)
[2018-09-01] MEDS: SODIUM CHLORIDE 0.9% INJ SCH (09:58)
[2018-09-01] MEDS: LEVEMIR SUBQ SCH (09:59)
[2018-09-01] MEDS: APRESOLINE PO SCH (10:02)
[2018-09-01] MEDS: WELCHOL PO SCH (10:02)
[2018-09-01] MEDS: ASPIRIN PO SCH (10:02)
[2018-09-01] MEDS: FLOMAX PO SCH (10:02)
--- NOTE | 2018-09-01 12:22 | Diag Imaging Result Doc PS360 ---
EXAM: CHEST-PORTABLE INDICATION: Rehab placement TECHNIQUE: One view COMPARISON: 06/18/2018 FINDINGS: There is stable mild elevation of the right hemidiaphragm. The lungs are grossly clear. There is no discrete pleural fluid collection or pneumothorax. There are stable CABG changes. The heart is prominent but stable. Central vasculature is unremarkable. IMPRESSION: Stable chest with no definite acute pathology. Electronically signed by Rodolfo Kenyon 09/01/2018 12:20 PM
[2018-09-01] MEDS: SANTYL OINT TOP SCH (13:22)
[2018-09-01] MEDS: CALMOSEPTINE OINTMENT TOP SCH ×2 (13:22→17:56)
[2018-09-01 16:15] VITALS: BP 121/73
== END 2018-09-01 18:00 | DRG 393 ==
LOC: SUPCPDRO → ED 13:00 → EDIPHOLD 17:47 → 3N 19:52
PROVIDERS: ADMIT Internal Medicine; ATTEND Family Medicine
CPT/HCPCS: 71010; 71045; 74176; 76700; 80048; 80053; 81001; 82105; 82948; 84134; 85025; 86753; 87045; 87046; 87177; 87205; 87324; 87449; 88313; 89055; 96361; 96372; 96374; 97162; 97530; 99285; 99999; A9270; C9113; J0500; J3480; J7030; S0030; S0164; XXXXX